=== PATIENT | male | born 1985 | race Caucasian/White ===

== ENCOUNTER 2016-08-27 08:41 | Emergency (ER) | payer MEDICAID ==
[2016-08-27] MEDS ORDERED: SODIUM CHLORIDE 0.9% 1,000 ML ONE ×2 (09:30→14:28)
[2016-08-27] MEDS ORDERED: LIDOCAINE 1% MDV 20 ML ONE (12:43)
[2016-08-27] MEDS ORDERED: DILAUDID 1 MG/ML AMP ONE (14:28)
== END 2016-08-27 17:02 | disposition home or self-care (01) ==
LOC: ER 08:41
DX: G43.C0 Periodic headache syndromes in child or adult, not intractable (principal)
CPT/HCPCS: 36415; 70450; 71010; 80048; 81003; 82945; 83605; 84157; 85025; 87040; 87071; 87205; 87498; 87529; 87798; 87804; 87880; 89051; 96361; 96374